=== PATIENT | female | born 1980 | race African-American/Black ===

== ENCOUNTER 2017-11-15 13:26 | Emergency (ER) | payer OTHER ==
[~2017-11-15] VITALS: Ht 170.2 cm; Wt 72.8 kg
[2017-11-15] MEDS ORDERED: ONDANSETRON ODT 4 MG ONE (14:23)
[2017-11-15] MEDS ORDERED: MAALOX/HYOSCYAMINE/LIDOCAINE 45 ML BTL ONE (14:23)
[2017-11-15] MEDS ORDERED: MAALOX/HYOSCYAMINE/LIDOCAINE 45 ML BTL PO ONE (14:30)
[2017-11-15] MEDS ORDERED: ONDANSETRON ODT 8 MG PO ONE (14:30)
[2017-11-15 14:46] LABS: ALANINE AMINOTRANSFERASE 14 U/L (12-78); ALBUMIN 3.2 g/dL (3.4-5.0); ANION GAP 7 mmol/L (5-15); CHLORIDE 109 mmol/L (98-107); CREATININE 0.79 mg/dL (0.55-1.02)
[2017-11-15 14:56] LABS: ALKALINE PHOSPHATASE 54 U/L (45-117); BILIRUBIN,TOTAL 0.4 mg/dL (0.2-1.0); TOTAL PROTEIN 7.9 g/dL (6.4-8.2)
[2017-11-15 15:01] LABS: BASOPHILS # (AUTO) 0.02 x10^3/uL (0-0.1); BASOPHILS % (AUTO) 0 % (0-1); EOSINOPHILS # (AUTO) 0.16 x10^3/uL (0-0.4); EOSINOPHILS % (AUTO) 3 % (1-7); LYMPHOCYTES # (AUTO) 1.28 x10^3/uL (1-3.4); LYMPHOCYTES % (AUTO) 24 % (22-44); MD NO; MEAN CORPUSCULAR HEMOGLOBIN 28.2 pg (27.0-34.8); MEAN CORPUSCULAR VOLUME 85.3 fL (80-100); MEAN PLATELET VOLUME 8.5 fL (7.4-10.4); MONOCYTES # (AUTO) 0.46 x10^3/uL (0.2-0.8); MONOCYTES % (AUTO) 9 % (2-9); NEUTROPHILS # (AUTO) 3.45 x10^3/uL (1.8-6.8); NEUTROPHILS % (AUTO) 64 % (42-75); PLATELET COUNT 325 x10^3/uL (130-400); RED BLOOD COUNT 3.73 x10^6/uL (3.82-5.3); RED CELL DISTRIBUTION WIDTH 13.9 % (9.6-15.2)
[2017-11-15 15:45] VITALS: BP 118/75
== END 2017-11-15 15:47 | disposition home or self-care (01) ==
LOC: ED 15:06
DX: R11.0 Nausea (principal); R55 Syncope and collapse; M32.9 Systemic lupus erythematosus, unspecified
CPT/HCPCS: 36415; 80053; 83690; 84703; 85025; 93005; 99285; Q0162

== ENCOUNTER → 2018-07-25 | Outpatient (CLI) | payer OTHER | END | disposition home or self-care (01) | LOC: RAD 16:07 | PROVIDERS: ATTEND Internal Medicine Hematology & Oncology | DX: M48.54XA Collapsed vertebra, not elsewhere classified, thoracic region, initial encounter for fracture (principal); M47.892 Other spondylosis, cervical region; D47.2 Monoclonal gammopathy | CPT/HCPCS: 77075 ==